=== PATIENT | male | born 1955 | race Caucasian/White ===

== ENCOUNTER 2023-01-27 03:09 | Emergency (ER) | payer MEDICARE, SELFPAY ==
[2023-01-27 03:11] VITALS: BP 188/89; PULSE 99; RESP 18; TEMP 36.1; O2SAT 99; BMI 27.1
[2023-01-27] MEDS: Morphine 4 MG/ML Syringe IV (03:40)
[2023-01-27] MEDS: Ondansetron 4 MG/2 ML Vial IV (03:40)
--- NOTE | 2023-01-27 03:59 | EDS_ITS ---
HPI History of Present Illness Chief Complaint: Abd Pain Narrative Narrative: Pain is a 67-year-old male with past medical history of hypothyroidism who presents to the ER with abdominal pain. Patient states he ate around 3 in the afternoon and then again around 11 developed generalized mid to upper right abdominal pain. He states there has been no nausea vomiting or diarrhea associated with this. He denies any fevers or chills. He denies any recent trauma or known sick contacts. He denies any history of gallbladder or pancreas disease and any history of ulcers or alcohol use. However based on the worsening pain he presents for evaluation [facility] Home Medications gabapentin 100 mg capsule 100 mg PO TID PRN pain 7 days #21 caps 01/27/23 [Rx Last Taken Unknown] levothyroxine 125 mcg tablet (Synthroid) 125 mcg PO DAILY 01/27/23 [History Last Taken Unknown] ondansetron 4 mg disintegrating tablet 4 mg PO TID PRN nausea and vomiting #21 tabs 01/27/23 [Rx Last Taken Unknown] oxycodone-acetaminophen 5 mg-325 mg tablet (Endocet) 1 tab PO Q6H PRN pain 3 days #12 tabs 01/27/23 [Rx Last Taken Unknown] valacyclovir 1 gram tablet (Valtrex) 1,000 mg PO TID 7 days #21 tabs 01/27/23 [Rx Last Taken Unknown] Allergy/AdvReac Type Severity Reaction Status Date / Time Penicillins AdvReac Shortness Verified 01/27/23 03:13 of breath Social History Smoking Status: Former smoker ROS ROS ED Constitutional Constitutional ED: Denies chills or fever(s) ENT ENT ED: Denies sore throat Cardiovascular Cardiovascular: Denies chest pain Respiratory/Chest Respiratory/Chest: Denies cough or dyspnea Gastrointestinal Gastrointestinal: Reports abdominal pain; Denies diarrhea, nausea or vomiting Genitourinary Genitourinary ED: Denies dysuria or hematuria Musculoskeletal Musculoskeletal: Denies back pain or myalgias Integumentary Reports rash Neurologic Neurologic: Denies headache(s) Hematologic/Lymphatic Hematologic/Lymphatic: Denies easy bleeding or easy bruising EXAM Physical Exam Const Vital Signs: 01/27/23 03:11 01/27/23 04:10 Temperature 97 F L Temperature Source Temporal Pulse Rate 99 58 L Respiratory Rate 18 15 Blood Pressure 188/89 H 160/86 H Blood Pressure Mean 122 110 Pulse Ox 99 99 Oxygen Delivery Method Room Air Room Air Positive well nourished and well developed General Appearance ED: well developed HEENT Reports moist mucous membranes HEENT Narrative: No tonsillar hypertrophy hard palate petechiae trismus change in voice or difficulty with secretions to suggest an infection in the posterior pharynx Eyes PERRL and EOMs intact bilaterally General Eye ED: Negative for scleral icterus Neck supple Neck Narrative: No nuchal rigidity or meningeal signs Resp normal respiratory effort and clear to auscultation bilaterally Cardio regular rate and regular rhythm Rate: other Other Details: Radial pulses are plus 2 out of 4 bilaterally are equal and symmetric GI non-distended GI Narrative: Abdomen is soft and nondistended with normoactive bowel sounds. There is mild pain on palpation along the midepigastric and right upper quadrant region without voluntary guarding or rigidity. Negative Caraballo sign. No pulsatile mass or fluid wave Auscultation: normoactive bowel sounds Palpation: soft Back/Spine no CVA tenderness Extremity normal to inspection Neuro oriented x3 and CN's II-XII intact bilaterally Sensorium / Orientation: alert Psych mental status grossly normal Skin Skin Narrative: Patient has a erythematous blanchable rash with slight vesicular change located along the right upper abdomen extending towards the back in a dermatomal pattern near T7 or T8 General Skin Exam: Negative for jaundice MDM MDM MDM Narrative Medical decision making narrative: Patient presented to the ER hypertensive but otherwise with normal vitals. his abdomen is soft and nonsurgical and therefore feel there is no need for emergent CT scan. The patient's pain could be secondary to biliary colic or pancreatitis or intestinal infection but as he has a rash across the right upper quadrant and this is where his pain is located I feel he has shingles pain. Basic blood work was obtained to check for any possible underlying infectious process and blood work revealed no clinically significant findings. On reevaluation after medication he is resting comfortably and his abdomen remains soft and nonsurgical. He will be started on antivirals as well as pain control secondary to the shingles but as he does not have a work-up concerning for underlying intestinal infection he is otherwise safe for discharge History & Record Review Discussion w/independent historian: Patient and Family Lab Data Attestation: I reviewed the patient's lab results. Labs: Laboratory Results - last 24 hr 01/27/23 01/27/23 03:23 03:23 WBC 9.9 RBC 4.99 Hgb 13.7 Hct 41.7 MCV 83.6 MCH 27.5 MCHC 32.9 RDW Std Deviation 44.1 H RDW Coeff of Jeny 14.5 Plt Count 237 MPV 9.5 Immature Gran % (Auto) 0.300 Neut % (Auto) 85.1 H Lymph % (Auto) 7.1 L [place] % (Auto) 6.5 Eos % (Auto) 0.7 Baso % (Auto) 0.3 Absolute Neuts (auto) 8.4 H Absolute Lymphs (auto) 0.70 L Nucleated RBC % 0 Sodium 140 Potassium 3.6 Chloride 104 Carbon Dioxide 28.0 Anion Gap 8 BUN 22 H Creatinine 1.09 Estim Creat Clear Calc 72.28 Est GFR (MDRD) Af Amer 86 Est GFR (MDRD) Non-Af 71 BUN/Creatinine Ratio 20.2 H Glucose 152 H Calcium 9.4 Total Bilirubin 0.70 Direct Bilirubin 0.16 AST 18 ALT 25 Alkaline Phosphatase 86 Total Protein 6.9 Albumin 3.5 Globulin 3.4 Lipase 67 L Discharge Plan Triage Chief Complaint: Abd Pain ED Provider: Ramez Stearns Dx/Rx/DC Orders Clinical Impression: Herpes zoster, Hypothyroidism Instructions: Shingles (Herpes Zoster) Prescriptions: New oxycodone-acetaminophen [Endocet] 5-325 mg tablet 1 tab PO Q6H PRN (Reason: pain) 3 Days Qty: 12 0RF ondansetron 4 mg tablet,disintegrating 4 mg PO TID PRN (Reason: nausea and vomiting) Qty: 21 0RF gabapentin 100 mg capsule 100 mg PO TID PRN (Reason: pain) 7 Days Qty: 21 0RF valacyclovir [Valtrex] 1 gram tablet 1,000 mg PO TID 7 Days Qty: 21 0RF No Action levothyroxine [Synthroid] 125 mcg tablet 125 mcg PO DAILY Label Comments: TAKE 1 TABLET BY MOUTH ONCE DAILY Primary Care Provider: Evette Jenkins Referrals: Evette Jenkins [Primary Care Provider] - Activity Restrictions/Additional Instructions: Please take the medication as directed to help control pain from your shingles. If you have worsening of symptoms or any further concerns please return to the ER for repeat evaluation Disposition Disposition: Home, Self Care
[2023-01-27 04:00] LABS: Absolute Neutrophil Count 8.4 X10^3/uL (2.0-7.7); Basophil# 0.03 X10^3/uL; Basophil% 0.3 % (0-1); Eosinophil# 0.07 X10^3/uL; Eosinophils% 0.7 % (0-5); Hematocrit 41.7 % (40-54); Hemoglobin 13.7 g/dL (13.0-16.5); Lymphocyte % 7.1 % (19-41); Mean Corp Hgb Conc 32.9 g/dL (32-36); Mean Corpuscular Hgb 27.5 pg (27.0-32.0); Mean Corpuscular Volume 83.6 fL (80-94); Mean Platelet Vol. 9.5 fl (6.2-12.0); Monocyte# 0.64 X10^3/uL; Monocyte% 6.5 % (0-10); NRBC Flagged by Analyzer 0 % (0-5); Neutrophil # 8.39 X10^3/uL (2.7-7.7); Neutrophil % 85.1 % (47-70); Platelet Count 237 K/mm3 (150-450); RBC Distribution Width CV 14.5 % (11.6-14.6); RBC Distribution Width SD 44.1 fl (35.1-43.9); Red Blood Count 4.99 M/mm3 (4.6-6.2); White Blood Count 9.9 K/mm3 (4.4-11.0)
[2023-01-27] MEDS: Gabapentin 100 MG Capsule PO (04:06)
[2023-01-27 04:10] VITALS: BP 160/86; PULSE 58; RESP 15; O2SAT 99
[2023-01-27 04:18] LABS: AST(SGOT) 18 U/L (15-37); Alanine Aminotransfer ALT/SGPT 25 U/L (16-61); Albumin, Serum 3.5 g/dL (3.2-5.0); Alkaline Phosphatase 86 U/L (45-117); Anion Gap 8 (5-15); BUN 22 mg/dL (7-18); BUN/Creat Ratio 20.2 RATIO (10-20); Bilirubin, Direct 0.16 mg/dL (0.00-0.30); Calcium,Total 9.4 mg/dL (8.5-10.1); Chloride 104 mmol/L (98-107); Creatinine, Serum 1.09 mg/dL (0.70-1.30); EST Glomerular Filtration Rate 71 mL/min (>60); Est Glom Filt Rate - Afr Amer 86 mL/min (>60); Estimated Creatinine Clearance 72.28 ml/min; Globulin 3.4 g/dL (2.2-4.2); Glucose 152 mg/dL (74-106); Lipase 67 U/L (73-393); Potassium 3.6 mmol/L (3.5-5.1); Protein, Total 6.9 g/dL (6.4-8.2); Sodium Level 140 mmol/L (136-145)
[2023-01-27] MEDS: oxyCODONE 5 MG Tablet 10 MG PO (04:59)
[2023-01-27 05:05] VITALS: BP 160/86; PULSE 60; RESP 15; O2SAT 99
== END 2023-01-27 05:06 | disposition home or self-care (01) ==
PROVIDERS: Emergency Provider Emergency Medicine; Visit Provider Emergency Medicine
DX: B02.9 Zoster without complications (principal); R10.11 Right upper quadrant pain; Z87.891 Personal history of nicotine dependence; E03.9 Hypothyroidism, unspecified; Z79.890 Hormone replacement therapy; Z79.899 Other long term (current) drug therapy
CPT/HCPCS: 80048; 80076; 83690; 85025; 96374; 96375; 99284; A4216; J2405

== ENCOUNTER 2024-03-27 15:27 | Emergency (ER) | payer MEDICARE, SELFPAY ==
[2024-03-27 15:28] VITALS: BP 238/203; PULSE 84; RESP 18; TEMP 36.4; O2SAT 98; BMI 26.6
--- NOTE | 2024-03-27 15:45 | ED.RN ---
PT HAD EYES WASHED X10 MIN. WHILE IN TRAIGE FOR
--- NOTE | 2024-03-27 19:00 | ED.RN ---
PT STATES HE FEELS HIS PROBLEM RESOLVED AND ISNT GOING TO STAY
== END 2024-03-27 19:00 | disposition left against medical advice (07) ==
LOC: ED 19:10
DX: Z77.098 Contact with and (suspected) exposure to other hazardous, chiefly nonmedicinal, chemicals (principal); Z53.21 Procedure and treatment not carried out due to patient leaving prior to being seen by health care provider

== ENCOUNTER → 2025-01-09 | Outpatient (CLI) | payer MEDICARE, SELFPAY ==
[2025-01-09 13:19] LABS: Hematocrit 45.9 % (40-54); Hemoglobin 15.2 g/dL (13.0-16.5); Mean Corp Hgb Conc 33.1 g/dL (32-36); Mean Corpuscular Hgb 30.3 pg (27.0-32.0); Mean Corpuscular Volume 91.6 fL (80-94); Mean Platelet Vol. 10.4 fl (6.2-12.0); Platelet Count 205 K/mm3 (150-450); RBC Distribution Width CV 12.4 % (11.6-14.6); Red Blood Count 5.01 M/mm3 (4.6-6.2); White Blood Count 5.7 K/mm3 (4.4-11.0)
[2025-01-09 13:32] LABS: Hemoglobin A1c 5.8 % (<=5.6)
[2025-01-09 13:50] LABS: ALB/GLOB Ratio 1.4 RATIO (0.9-2.4); AST(SGOT) 26 U/L (<=37); Alanine Aminotransfer ALT/SGPT 23 U/L (<=46); Albumin, Serum 4.1 g/dL (3.4-4.8); Alkaline Phosphatase 91 U/L (40-129); Anion Gap 12 (5-15); BUN 22 mg/dL (4-19); BUN/Creat Ratio 20.5 RATIO (10-20); Calcium,Total 9.2 mg/dL (7.6-11.0); Carbon Dioxide 23.9 mmol/L (21.0-32.0); Chloride 104 mmol/L (98-108); Creatinine, Serum 1.08 mg/dL (0.70-1.20); EST Glomerular Filtration Rate 73 (>60); Globulin 2.9 g/dL (2.2-4.2); Glucose 87 mg/dL (70-99); Potassium 4.3 mmol/L (3.3-5.1); Sodium Level 140 mmol/L (133-145); Total Bilirubin 0.53 mg/dL (0.00-1.30); Vitamin D,25 Hydroxy 25.1 ng/mL (30-100)
== END | disposition home or self-care (01) ==
LOC: VSLAB 10:27
PROVIDERS: PCP Nurse Practitioner Family; Visit Provider Nurse Practitioner Family
DX: E03.9 Hypothyroidism, unspecified (principal); R73.03 Prediabetes; E55.9 Vitamin D deficiency, unspecified
CPT/HCPCS: 36415; 80053; 82306; 83036; 84439; 84443; 85027

== ENCOUNTER 2025-10-28 05:34 | Emergency (ER) | payer MEDICARE, SELFPAY ==
[2025-10-28 05:36] VITALS: BP 152/77; PULSE 72; RESP 16; TEMP 37.1; O2SAT 100; BMI 26.8
--- NOTE | 2025-10-28 05:49 | EX.ED.GUMALE ---
HPI History of Present Illness Chief Complaint: Flank Pain Informant: patient and spouse/S.O. Narrative Narrative: Patient is a 70-year-old male presenting with urinary symptoms and low back pain. - Reports 4 days of urinary urgency, frequency, burning dysuria, and incomplete bladder emptying. - Denies perineal pain, significant pain with bowel movements, scrotal or testicular pain, fevers, chills, nausea, or emesis. - Over the last 1-2 days, has experienced low back pain and mid-low abd pain that alleviate after urination; worsens when lying down. - Similar symptoms in the past were treated with antibiotics for an infection; did not follow up with urology. - Previous PSA test showed slight elevation, but no urinary issues at that time. PFSH PFSH Home Medications ?Medication ?Instructions ?Recorded ?Last Taken ?Type levothyroxine 125 mcg tablet 125 mcg PO DAILY 01/27/23 Unknown History (Synthroid) nitrofurantoin 100 mg PO Q12 #6 CAPSULES 10/28/25 Unknown Rx monohydrate/macrocrystals 100 mg capsule tamsulosin 0.4 mg capsule 0.4 mg PO DAILY #30 caps 10/28/25 Unknown Rx Allergy/AdvReac Type Severity Reaction Status Date / Time Penicillins AdvReac Shortness Verified 10/28/25 05:39 of breath Surgical History S/P hernia surgery Social History Smoking Status: Former smoker ROS ROS ED Constitutional Constitutional ED: Denies chills or fever(s) Eyes Eyes: Denies change in vision or diplopia ENT ENT ED: Denies rhinorrhea or sore throat Cardiovascular Cardiovascular: Denies chest pain or palpitations Respiratory/Chest Respiratory/Chest: Denies cough or dyspnea Gastrointestinal Gastrointestinal: Reports abdominal pain; Denies diarrhea, nausea or vomiting Genitourinary Genitourinary ED: Reports burning urination, difficulty urinating, dysuria, urinary frequency and urinary urgency; Denies hematuria, scrotal pain or testicular swelling Musculoskeletal Musculoskeletal: Reports back pain; Denies neck pain Integumentary Denies abscess or rash Neurologic Neurologic: Denies headache(s), paresthesias or weakness Psychiatric Psychiatric: Denies anxiety or suicidal thoughts EXAM Physical Exam Const Vital Signs: 10/28/25 05:36 Temperature 98.7 F Temperature Source Oral Pulse Rate 72 Respiratory Rate 16 Blood Pressure 152/77 H Blood Pressure Mean 102 Pulse Ox 100 Oxygen Delivery Method Room Air Positive well nourished and well developed General Appearance ED: well developed and NAD HEENT Reports moist mucous membranes normocephalic and atraumatic Eyes PERRL and EOMs intact bilaterally Neck full ROM and supple Resp normal respiratory effort and clear to auscultation bilaterally Cardio regular rate, regular rhythm and no murmurs GI non-tender and non-distended Auscultation: normoactive bowel sounds Palpation: soft no CVA tenderness Testes: Negative for testicular swelling Back/Spine no CVA tenderness General Back: other FROM Extremity normal to inspection General Extremety ED: Negative for edema, pulses abnormal or tenderness General Extremity: Negative for edema or pulses abnormal Neuro oriented x3, CN's II-XII intact bilaterally and no sensory deficits noted Sensorium / Orientation: awake and alert Motor Exam: strength 5/5 throughout Skin no rashes or lesions noted and no wounds MDM MDM MDM Narrative Medical decision making narrative: Assessment: The patient is a 70-year-old male presenting for four days of urinary urgency, frequency, dysuria, and incomplete bladder emptying. Post-void bladder scan showed approximately 200 cc residual, consistent with acute urinary retention. Urinalysis demonstrated 100 leukocyte esterase with only 0?5 WBCs, no bacteria, and negative nitrite; renal function normal and no leukocytosis, making bacterial cystitis or prostatitis less likely. Given objective retention and absence of systemic signs, the most likely etiology is outlet obstruction from enlarged prostate rather than infection, but both considered simultaneously possible. We considered imaging such as CT abdomen/pelvis, but since he has no CVA tenderness and no lateralizing symptoms to suggest an obstructive uropathy, this was considered and not needed or necessary. Plan: - Prescribed 3-day course of Macrobid and flomax - Patient declined Jin catheter after risks/benefits discussion - Provided strict return precautions for worsening pain, inability to void, fever, or increasing retention - Advised outpatient urology follow-up for evaluation of possible BPH and definitive management Diagnostics: - Urinalysis: 100 leukocyte esterase; 0?5 WBC/hpf; no bacteria; nitrite negative - Bedside bladder scan: ~200 cc post-void residual urine Portions of this note were generated using voice recognition software (Dragon/AI Dictation). I have reviewed the contents and every effort has been made to ensure accuracy; however, inadvertent errors in grammar, spelling, punctuation, or word choice may occur, that were not noted before signing the document and should not alter the intended clinical meaning. Lab Data Attestation: I reviewed the patient's lab results. Labs: Laboratory Results - last 24 hr 10/28/25 10/28/25 05:51 05:54 WBC 6.0 RBC 4.80 Hgb 14.4 Hct 42.2 MCV 87.9 MCH 30.0 MCHC 34.1 RDW Std Deviation 39.4 RDW Coeff of Jeny 12.1 Plt Count 239 MPV 9.0 Immature Gran % (Auto) 0.500 Neut % (Auto) 68.1 Lymph % (Auto) 15.2 L [place] % (Auto) 11.9 H Eos % (Auto) 3.5 Baso % (Auto) 0.8 Absolute Neuts (auto) 4.1 Absolute Lymphs (auto) 0.91 Nucleated RBC % 0 Sodium 138 Potassium 3.9 Chloride 101 Carbon Dioxide 26.9 Anion Gap 11 BUN 19 Creatinine 1.18 Estim Creat Clear Calc 63.95 Est GFR (MDRD) Non-Af 66 BUN/Creatinine Ratio 16.2 Glucose 113 H Calcium 9.2 Urine Color Yellow Urine Clarity Clear Urine pH 7.0 Ur Specific Eva 1.015 Urine Protein Negative Urine Glucose (UA) Normal Urine Ketones Negative Urine Occult Blood Negative Urine Nitrite Negative Urine Bilirubin Negative Urine Urobilinogen Normal Ur Leukocyte Esterase 100 H Urine RBC 0 SEEN Urine WBC 0-5 SEEN Ur Squamous Epith Cells 0 SEEN Urine Bacteria 0 SEEN Urine Mucus 0 SEEN Discharge Plan Triage Chief Complaint: Flank Pain ED Provider: Jamar Young Dx/Rx/DC Orders Clinical Impression: Acute urinary retention, Lower urinary tract symptoms (LUTS), Dysuria Instructions: ED Urinary Retention, Male Prescriptions: New tamsulosin 0.4 mg capsule 0.4 mg PO DAILY Qty: 30 0RF nitrofurantoin monohyd/m-cryst 100 mg capsule 100 mg PO Q12 Qty: 6 0RF No Action levothyroxine [Synthroid] 125 mcg tablet 125 mcg PO DAILY Patient Comments: TAKE 1 TABLET BY MOUTH ONCE DAILY Primary Care Provider: Jessie Russ [facility] Referrals: Julián Neri MD [Med Staff - Active Staff, Urology] - 1-2 Weeks Jessie Russ, [employer] [Primary Care Provider, Family Practice] Print Language: Arabic Disposition Disposition: Home, Self Care
--- OUTSIDE RECORDS SUMMARY | 2025-10-28 05:57 | XMS RPT_ITS | CCD ---
Author Organization [facility] Care Team Providers Care Licensed Real Estate Broker Name Role Phone Jessie Russ Attending Unavailable Jessie Russ Primary Care Unavailable Evette Jenkins Primary Care Unavailable Provider, Ed Physician Attending Miya Fontana BELT WEAVERJessie Shankar Primary Care Provider Jessie Bartlett Attending Provider Allergies Allergy Classification Reported Allergen(s) Allergy Type Date of Onset Reaction(s) Facility (1 source) Penicillins Drug allergy (disorder) 4 [facility] Repository (1 source) Penicillins Propensity to adverse reactions 4 Shortness of breath [facility] Medications Current Medications Medication Drug Class(es) Dates Sig (Normalized) Sig (Original) acetaminophen 325 mg / oxyCODONE hydrochloride 5 mg oral tablet (1 source) Opioid Agonist Start: 01-27-2023 take 1 tablet by mouth every six hours as needed for pain Oxycodone-Acetamino phen (Endocet) 5-325 mg tablet Active 1 {tbl} PO EVERY 6 HOURS as needed for pain 12 3 January 27, 2023 gabapentin 100 mg oral capsule (1 source) Anti-epileptic Agent Start: 01-27-2023 take 1 capsule by mouth three times daily as needed for pain Gabapentin 100 mg capsule Active 100 mg PO THREE TIMES A DAY as needed for pain 21 7 January 27, 2023 4:46am levothyroxine sodium 0.125 mg oral tablet (1 source) l-Thyroxine Start: 01-27-2023 take 1 tablet by mouth once daily Levothyroxine (Synthroid) 125 mcg tablet Active 125 ug PO DAILY January 27, 2023 12:00am ondansetron 4 mg disintegrating oral tablet (1 source) Serotonin-3 Receptor Antagonist Start: 01-27-2023 take 1 tablet by mouth three times daily as needed for nausea and vomiting Ondansetron 4 mg tablet,disintegrati ng Active 4 mg PO THREE TIMES A DAY as needed for nausea and vomiting January 27, 2023 4:45am valACYclovir 1000 mg oral tablet (1 source) Herpesvirus Nucleoside Analog DNA Polymerase Inhibitor, Herpes Simplex Virus Nucleoside Analog DNA Polymerase Inhibitor, Herpes Zoster Virus Nucleoside Analog DNA Polymerase Inhibitor Start: 01-27-2023 Valacyclovir (Valtrex) 1 gram tablet Active 1000 mg PO THREE TIMES A DAY 27 05January 27, 2023 12:00am Problems Active Problems Problem Classification Problem Date Documented Da te Episodic/Chronic Thyroid disorders (2 sources) Hypothyroidism, unspecified; Translations: [Hypothyroidism] Onset: 01-20-2025 02-04-2023 Chronic Viral infection (1 source) Herpes zoster; Translations: [Zoster without complications] 02-04-2023 Episodic Past or Other Problems Problem Classification Problem Date Documented Da te Episodic/Chronic Residual codes; unclassified (1 source) Contact with and (suspected) exposure to other hazardous, chiefly nonmedicinal, chemicals; Translations: [Contact with and (suspected) exposure to other hazardous, chiefly nonmedicinal, chemicals] Onset: 04-02-2024 Episodic Results Test Name Value Interpretation Reference Range Facility Anion gap in Serum or Plasma Ordered By: [facility] Jessie Russ on 01-09-2025 Anion gap [Moles/Vol] 12 mmol/L 5-15 [facility] BUN/creatinine ratioOrdered By: [facility] Jessie Russ on 01-09-2025 Urea nitrogen/Creatinine [Mass ratio] 20.5 mg/mg High 10-20 [facility] Bilirubin, totalOrdered By: [facility] Jessie Russ on 01-09-2025 Bilirubin [Mass/Vol] 0.53 mg/dL 0.00-1.30 [facility] CBC-Complete Blood Cnt No Di ffon 01-09-2025 Erythrocyte distribution width (RBC) [Ratio] 12.4 % Normal 11.6-14.6 [facility] Comment on above: Performed By: #### L 501.9581, L501.2320, L500.4050, L100.0500, L506.1001, L506.0400 #### [facility] Laboratory [facility] [place], [address] Hematocrit (Bld) [Volume fraction] 45.9 % Normal 40-54 [facility] Comment on above: Performed By: #### L [id number], L501.9520, L500.4050, L100.0500, L506.1001, L506.0400 #### [facility] Laboratory [address] [place], [address] Hemoglobin (Bld) [Mass/Vol] 15.2 g/dL Normal 13.0-16.5 [facility] Comment on above: Performed By: #### L [id number], L501.9520, L500.4050, L100.0500, L506.1001, L506.0400 #### [facility] Laboratory [address] [place], [address] MCH (RBC) [Entitic mass] 30.3 pg Normal 27.0-32.0 [facility] Comment on above: Performed By: #### L [id number], L501.9520, L500.4050, L100.0500, L506.1001, L506.0400 #### [facility] Laboratory [address] [place], [address] MCHC (RBC) [Mass/Vol] 33.1 g/dL Normal 32-36 [facility] Comment on above: Performed By: #### L [id number], L501.9520, L500.4050, L100.0500, L506.1001, L506.0400 #### [facility] Laboratory [address] [place], [address] MCV (RBC) [Entitic vol] 91.6 fL Normal 80-94 [facility] Comment on above: Performed By: #### L 501.9985, L501.9520, L500.4050, L100.0500, L506.1001, L506.0400 #### [facility] Laboratory [address] [place], [address] Platelet mean volume (Bld) [Entitic vol] 10.4 fL Normal 6.2-12.0 [facility] Comment on above: Performed By: #### L 501.9985, L501.9520, L500.4050, L100.0500, L506.1001, L506.0400 #### [facility] Laboratory [address] [place], [address] Platelets (Bld) [#/Vol] 205 10*3/uL Normal 150-450 [facility] Comment on above: Performed By: #### L 501.9985, L501.9520, L500.4050, L100.0500, L506.1001, L506.0400 #### [facility] Laboratory [address] [place], [address] RBC (Bld) [#/Vol] 5.01 10*6/uL Normal 4.6-6.2 [facility] Comment on above: Performed By: #### L 501.9985, L501.9520, L500.4050, L100.0500, L506.1001, L506.0400 #### [facility] Laboratory [address] [place], [address] RDW SD 41.0 fl Normal 35.1-43.9 [facility] Comment on above: Performed By: #### L 501.9985, L501.9520, L500.4050, L100.0500, L506.1001, L506.0400 #### [facility] Laboratory [address] [place], [address] WBC (Bld) [#/Vol] 5.7 10*3/uL Normal 4.4-11.0 [facility] Comment on above: Performed By: #### L 501.9985, L501.9520, L500.4050, L100.0500, L506.1001, L506.0400 #### [facility] Laboratory [address] [place], [address] Carbon dioxide, total [Moles /volume] in Central venous bloodOrdered By: [facility] Jessie Russ on 01-09-2025 CO2 [Moles/Vol] 23.9 mmol/L 21.0-32.0 [facility] Chloride assayOrdered By: [facility]ie [facility] on 01-09-2025 Chloride [Moles/Vol] 104 mmol/L 98-108 [facility] Comprehensive Metabolic Prof ilon 01-09-2025 Albumin [Mass/Vol] 4.1 g/dL Normal 3.4-4.8 [facility] Comment on above: Performed By: #### L 501.9985, L501.9520, L500.4050, L100.0500, L506.1001, L506.0400 #### [facility] Laboratory [address] [place], [address] Albumin/Globulin [Mass ratio] 1.4 {ratio} Normal 0.9-2.4 [facility] Comment on above: Performed By: #### L 501.9985, L501.9520, L500.4050, L100.0500, L506.1001, L506.0400 #### [facility] Laboratory [address] [place], [address] ALK PHOS 91 U/L Normal 40-129 [facility] Comment on above: Performed By: #### L 501.9985, L501.9520, L500.4050, L100.0500, L506.1001, L506.0400 #### [facility] Laboratory [address] [place], [address] ALT [Catalytic activity/Vol] 23 U/L Normal <=46 [facility] Comment on above: Performed By: #### L 501.9985, L501.9520, L500.4050, L100.0500, L506.1001, L506.0400 #### [facility] Laboratory [address] [place], [address] AST [Catalytic activity/Vol] 26 U/L Normal <=37 [facility] Comment on above: Performed By: #### L 501.9985, L501.9520, L500.4050, L100.0500, L506.1001, L506.0400 #### [facility] Laboratory [address] [place], [address] Bilirubin [Mass/Vol] 0.53 mg/dL Normal 0.00-1.30 [facility] Comment on above: Performed By: #### L 501.9985, L501.9520, L500.4050, L100.0500, L506.1001, L506.0400 #### [facility] Laboratory [address] [place], [address] BUN/CRE 20.5 RATIO High 10-20 [facility] Comment on above: Performed By: #### L 501.9985, L501.9520, L500.4050, L100.0500, L506.1001, L506.0400 #### [facility] Laboratory [address] [place], [address] Calcium [Mass/Vol] 9.2 mg/dL Normal 7.6-11.0 [facility] Comment on above: Performed By: #### L 501.9985, L501.9520, L500.4050, L100.0500, L506.1001, L506.0400 #### [facility] Laboratory [address] [place], [address] Chloride [Moles/Vol] 104 mmol/L Normal 98-108 [facility] Comment on above: Performed By: #### L 501.9985, L501.9520, L500.4050, L100.0500, L506.1001, L506.0400 #### [facility] Laboratory [address] [place], [address] CO2 [Moles/Vol] 23.9 mmol/L Normal 21.0-32.0 [facility] Comment on above: Performed By: #### L 501.9985, L501.9520, L500.4050, L100.0500, L506.1001, L506.0400 #### [facility] Laboratory [address] [place], [address] Creatinine [Mass/Vol] 1.08 mg/dL Normal 0.70-1.20 [facility] Comment on above: Performed By: #### L 501.9985, L501.9520, L500.4050, L100.0500, L506.1001, L506.0400 #### [facility] Laboratory [address] [place], [place], [id number] (821 GAP 12 Normal 5-15 [facility] Comment on above: Performed By: #### L 501.9985, L501.9520, L500.4050, L100.0500, L506.1001, L506.0400 #### [facility] Laboratory [address] [place], [address] GFR/1.73 sq M.predicted among non-blacks MDRD (S/P/Bld) [Vol rate/Area] 73 mL/min/{1.73_m2} Normal >60 [facility] Comment on above: Result Comment: mL/m in/1.73m2 CKD-EPI Creatinine Equation (2020) Performed By: #### L 501.9985, L501.9520, L500.4050, L100.0500, L506.1001, L506.0400 #### [facility] Laboratory [address] [place], [address] Globulin (S) [Mass/Vol] 2.9 g/dL Normal 2.2-4.2 [facility] Comment on above: Performed By: #### L 501.9985, L501.9520, L500.4050, L100.0500, L506.1001, L506.0400 #### [facility] Laboratory [address] [place], [address] Glucose [Mass/Vol] 87 mg/dL Normal 70-99 [facility] Comment on above: Performed By: #### L 501.9985, L501.9520, L500.4050, L100.0500, L506.1001, L506.0400 #### [facility] Laboratory [address] [place], [address] Potassium [Moles/Vol] 4.3 mmol/L Normal 3.3-5.1 [facility] Comment on above: Performed By: #### L 501.9985, L501.9520, L500.4050, L100.0500, L506.1001, L506.0400 #### [facility] Laboratory [address] [place], [address] Sodium [Moles/Vol] 140 mmol/L Normal 133-145 [facility] Comment on above: Performed By: #### L 501.9985, L501.9520, L500.4050, L100.0500, L506.1001, L506.0400 #### [facility] Laboratory [address] [place], [address] T PROT 7.0 g/dL Normal 5.9-8.4 [facility] Comment on above: Performed By: #### L 501.9985, L501.9520, L500.4050, L100.0500, L506.1001, L506.0400 #### [facility] Laboratory [address] [place], [address] Urea nitrogen [Mass/Vol] 22 mg/dL High 4-19 [facility] Comment on above: Performed By: #### L 501.9985, L501.9520, L500.4050, L100.0500, L506.1001, L506.0400 #### [facility] Laboratory [address] [place], [place], [id number] Erythrocyte distribution wid th ratioOrdered By: [facility] Jessie Russ on 01-09-2025 Erythrocyte distribution width (RBC) [Ratio] 12.4 % 11.6-14.6 [facility] Erythrocyte distribution wid th standard deviationOrdered By: [facility] Jessie Russ on 01-09-2025 Erythrocyte distribution width (RBC) [Entitic vol] 41.0 fL 35.1-43.9 [facility] GFR/1.73 sq M.predicted [place] g non-blacks MDRD (S/P/Bld) [Vol rate/Area]Ordered By: [facility] Jessie Russ on 01-09-2025 Estimated GFR (MDRD) Non-Af Amer 73 >60 [facility] Comment on above: mL/min/1.73m2 CKD-EP I Creatinine Equation (2020) Hematocrit Auto (Bld) [Volum e fraction]Ordered By: [facility] Jessie Russ on 01-09-2025 Hematocrit (Bld) [Volume fraction] 45.9 % 40-54 [facility] Hemoglobin A1con 01-09-2025 HbA1c (Bld) [Mass fraction] 5.8 % Normal <=5.6 [facility] Comment on above: Performed By: #### L 501.9985, L501.9520, L500.4050, L100.0500, L506.1001, L506.0400 #### [facility] Laboratory [address] [place], [place], [id number] Hemoglobin A1c percentageOrd ered By: [facility] Jessie Russ on 01-09-2025 HbA1c (Bld) [Mass fraction] 5.8 % >5.7 [facility] Hemoglobin measurementOrdere d By: [facility] Jessie Russ on 01-09-2025 Hemoglobin (Bld) [Mass/Vol] 15.2 g/dL 13.0-16.5 [facility] L506.1001on 01-09-2025 Vitamin D 25-OH 25.1 ng/mL Low 30-100 [facility] Comment on above: Result Comment: Deepti min D Status Deficiency: <20 ng/mL (50nmol/L) Insufficiency: 20-30 ng/mL (50-75 nmol/L) Sufficiency: 30-100 ng/mL (75-250 nmol/L) Toxicity: >100 ng/mL (>250 nmol/L) Performed By: #### L 501.9985, L501.9520, L500.4050, L100.0500, L506.1001, L506.0400 #### [facility] Laboratory [address] [place], [address] Laboratory - Chemistry and C hemistry - challengeOrdered By: [facility] Jessie Russ on 01-09-2025 AST [Catalytic activity/Vol] 26 U/L <38 [facility] MCV (mean corpuscular volume ) determinationOrdered By: [facility] Jessie Russ on 01-09-2025 MCV (RBC) [Entitic vol] 91.6 fL 80-94 [facility] Mean corpuscular hemoglobin (MCH) determinationOrdered By: [facility] Jessie Russ on 01-09-2025 MCH (RBC) [Entitic mass] 30.3 pg 27.0-32.0 [facility] Mean corpuscular hemoglobin concentration (MCHC) determinationOrdered By: [facility] Jessie Russ on 01-09-2025 MCHC (RBC) [Mass/Vol] 33.1 g/dL 32-36 [facility] Mean platelet volume determi nationOrdered By: Vitaly Russ on 01-09-2025 Platelet mean volume (Bld) [Entitic vol] 10.4 fL 6.2-12.0 [facility] Platelet countOrdered By: [facility] Jessie Russ on 01-09-2025 Platelets (Bld) [#/Vol] 205 10*3/uL 150-450 [facility] Potassium (Unsp spec) [Mass/ Vol]Ordered By: [facility] Jessie Russ on 01-09-2025 Potassium [Moles/Vol] 4.3 mmol/L 3.3-5.1 [facility] RBC Auto (Bld) [#/Vol]Ordere d By: [facility] Jessie Russ on 01-09-2025 RBC (Bld) [#/Vol] 5.01 10*6/uL 4.6-6.2 [facility] Serum creatinine measurement (mass/volume)Ordered By: [facility] Jessie Russ on 01-09-2025 Creatinine [Mass/Vol] 1.08 mg/dL 0.70-1.20 [facility] Serum globulin measurementOr dered By: [facility] Jessie Russ on 01-09-2025 Globulin (S) [Mass/Vol] 2.9 g/dL 2.2-4.2 [facility] Serum glucose measurement (m ass/volume)Ordered By: [facility] Jessie Russ on 01-09-2025 Glucose [Mass/Vol] 87 mg/dL 70-99 [facility] Serum or plasma alanine rutledge otransferase (ALT) measurementOrdered By: [facility] Jessie Russ on 01-09-2025 ALT [Catalytic activity/Vol] 23 U/L <47 [facility] Serum or plasma albumin wayne urement (mass/volume)Ordered By: [facility] Jessie Russ on 01-09-2025 Albumin [Mass/Vol] 4.1 g/dL 3.4-4.8 [facility] Serum or plasma albumin/glob ulin mass ratioOrdered By: [facility] Jessie Russ on 01-09-2025 Albumin/Globulin [Mass ratio] 1.4 {ratio} 0.9-2.4 [facility] Serum or plasma alkaline lucia sphatase measurementOrdered By: [facility] Jessie Russ on 01-09-2025 ALP [Catalytic activity/Vol] 91 U/L 40-129 [facility] Serum or plasma calcium wayne urement (mass/volume)Ordered By: [facility] Jessie Russ on 01-09-2025 Calcium [Mass/Vol] 9.2 mg/dL 7.6-11.0 [facility] Serum or plasma urea nitroge n measurement (mass/volume)Ordered By: [facility] Jessie Russ on 01-09-2025 Urea nitrogen [Mass/Vol] 22 mg/dL High 4-19 [facility] Sodium levelOrdered By: [facility] Jessie Russ on 01-09-2025 Sodium [Moles/Vol] 140 mmol/L 133-145 [facility] T4 Free Directon 01-09-2025 T4 FREE DIRECT 1.00 ng/dL Normal 0.76-1.46 [facility] Comment on above: Performed By: #### L 501.9985, L501.9520, L500.4050, L100.0500, L506.1001, L506.0400 #### [facility] Laboratory [address] [place], [place], [id number] T4 freeOrdered By: [facility] Mary Russ on 01-09-2025 Free T4 [Mass/Vol] 1.00 ng/dL 0.76-1.46 [facility] TSH DL <= 0.005 mIU/L QnOrde red By: [facility] Jessie Russ on 01-09-2025 Thyroid Stimulating Hormone (TSH) 4.260 uIU/mL High 0.300-4.200 [facility] Thyroid Stim Hormone (TSH)on 01-09-2025 TSH 4.260 uIU/mL High 0.300-4.200 [facility] Comment on above: Performed By: #### L 501.9985, L501.9520, L500.4050, L100.0500, L506.1001, L506.0400 #### [facility] Laboratory [address] [place], [place], [id number] Total proteinOrdered By: [facility] Jessie Russ on 01-09-2025 Protein [Mass/Vol] 7.0 g/dL 5.9-8.4 [facility] Vitamin D, 25-hydroxyOrdered By: [facility] Jessie Russ on 01-09-2025 Vitamin D 25-Hydroxy 25.1 ng/mL Low 30-100 [facility] Comment on above: Vitamin D StatusDefi ciency: <20 ng/mL (50nmol/L)Insufficiency: 20-30 ng/mL (50-75 nmol/L)Sufficiency: 30-100 ng/mL (75-250 nmol/L)Toxicity: >100 ng/mL (>250 nmol/L) White blood cell (WBC) count Ordered By: [facility] Jessie Russ on 01-09-2025 WBC (Bld) [#/Vol] 5.7 10*3/uL 4.4-11.0 [facility] Encounters Encounter Date Encounter Type Care Provider Facility Start: 01-09-2025 End: 01-09-2025 ambulatory Jessie Russ [employer] Work Phone: [facility] Work Phone: Start: 01-09-2025 End: 01-09-2025 Patient encounter procedure [facility] Jessie Russ [employer] -Laboratory, Evette Jenkins Start: 01-09-2025 End: 01-09-2025 ambulatory [facility] Facility:[facility] Start: 03-27-2024 End: 03-27-2024 [facility] Payers Date Payer Category Payer Medicare [id number] 2024 Self-pay Medicare MEDICARE PART A B [id number] Unknown [id number] Unknown [id number] Social History Date Type Detail Facility Start: 01-27-2023 Tobacco smoking stat [facility] Ex-smoker (finding) [facility] Start: 01-20-2025 Sex Male (finding) [facility] Start: 1955 Sex Assigned At Male [facility] Evaluation note Note Date & Type Note Facility Evaluation note No assessment information availa ble [facility] Work Phone: Reason for referral (narrative) Note Date & Type Note Facility Reason for referral (narrative) No reason for referral information available [facility] Work Phone: Summary Purpose Family History No Family History Records Found Advance Directives No Advanced Directives Records Found Additional Source Comments (unrecognized sect ion and content) No Status Records Found INFORMATION SOURCE (unrecogn ized section and content) DATE CREATED AUTHOR 01/22/2025 [facility] Teams (unrecognized sec tion and content) Team Status: Active Member Role Status Dates Donavon Mustafa Family Provider Active JAMAAL Bloom Primary Care Provider Activ e Team Status: Inactive Member Role Status Dates Jessie CONTE, [employer] Primary Care Provider Activ e Start: January 09, 2025 End: January 09, 2025 Jessie CONTE [employer]Vital[employer] Attending Provider Active Start: January 09, 2025 End: January 09, 2025 Goals (unrecognized section and content) Goals may be documented in a n alternate section FOR RECORDS PERTAINING TO PATIENTS WHO ARE OR HAVE BEEN ENROLLED IN A CHEMICAL DEPENDENCY/SUBSTANCEABUSE PROGRAM, SOME INFORMATION MAY BE OMITTED. This clinical summary was aggregated from multiple sources. Caution should be exercised in using it in the provision of clinical care. This summary normalizes information from multiple sources, and as a consequence, information in this document may materially change the coding, format and clinical context of patient data. In addition, data may be omitted in some cases. CLINICAL DECISIONS SHOULD BE BASED ON THE PRIMARY CLINICAL RECORDS. [facility] [email or web address] provides no warranty or guarantee of the accuracy or completeness of information in this document.
[2025-10-28 05:59] LABS: Hematocrit 42.2 % (40-54); Hemoglobin 14.4 g/dL (13.0-16.5); Immature Granulocytes Count 0.030 X10^3/uL (0.0-0.0); Mean Corp Hgb Conc 34.1 g/dL (32-36); Mean Corpuscular Volume 87.9 fL (80-94); Mean Platelet Vol. 9.0 fl (6.2-12.0); NRBC Flagged by Analyzer 0 % (0-5); Platelet Count 239 K/mm3 (150-450); RBC Distribution Width CV 12.1 % (11.6-14.6); RBC Distribution Width SD 39.4 fl (35.1-43.9); Red Blood Count 4.80 M/mm3 (4.6-6.2); White Blood Count 6.0 K/mm3 (4.4-11.0)
[2025-10-28 05:59] LABS: Color, Urine Yellow (Yellow); Glucose, Dipstick Normal (Normal); Ketone-Dipstick Negative (Negative); Leukocyte Esterase-Dipstick 100 /ul (Negative); Mucous, Urine 0 SEEN /hpf (<or=2+); Nitrite-Dipstick Negative (Negative); Occult Blood-Urine Negative /ul (Negative); Protein-Dipstick Negative (Negative); Red Blood Cells-Urine 0 SEEN /hpf (0-5); Specific Gravity, Urine 1.015 (1.002-1.030); Squamous Epithelial Cells - UA 0 SEEN /hpf (0-5); Urine Bilirubin Dipstick Negative (Negative)
[2025-10-28 06:29] LABS: Anion Gap 11 (5-15); BUN 19 mg/dL (4-19); BUN/Creat Ratio 16.2 RATIO (10-20); Calcium,Total 9.2 mg/dL (7.6-11.0); Carbon Dioxide 26.9 mmol/L (21.0-32.0); Chloride 101 mmol/L (98-108); Estimated Creatinine Clearance 63.95 ml/min (50-250); Glucose 113 mg/dL (70-99); Potassium 3.9 mmol/L (3.3-5.1)
[2025-10-28 07:39] VITALS: BP 134/78; BP 136/76; PULSE 78; RESP 16; TEMP 36.6; TEMP 37.2; O2SAT 98
== END 2025-10-28 07:41 | disposition home or self-care (01) ==
PROVIDERS: Emergency Provider Emergency Medicine; PCP Nurse Practitioner Family; Visit Provider Emergency Medicine
DX: R30.0 Dysuria (principal); R35.0 Frequency of micturition; R33.9 Retention of urine, unspecified; R39.14 Feeling of incomplete bladder emptying; R39.15 Urgency of urination; Z87.891 Personal history of nicotine dependence
CPT/HCPCS: 80048; 81001; 85025; 87086; 87088; 99282; A4216